=== PATIENT | female | born 1990 | race Caucasian/White ===

== ENCOUNTER → 2018-01-11 | Outpatient (CLI) | payer MEDICAID ==
[2018-01-11 13:28] LABS: HCT 42.8 % (34.0-46.0); MCH 30.1 pg (25.0-35.0); MCHC 32.8 g/dL (31.0-37.0); MCV 91.9 fL (80.0-100.0); Mean Platelet Volume 6.4; Platelet Count 287 k/uL (150-450); RBC 4.65 m/uL (3.80-5.40); RDW 12.7 % (11.5-15.5); WBC 7.4 k/uL (3.8-10.6)
--- NOTE | 2018-01-11 13:39 | US ---
EXAMINATION TYPE: Transabdominal DATE OF EXAM: 08/25/17 COMPARISON: NONE CLINICAL HISTORY: Z36 CONFIRM DATES. Confirm Dates EXAM PERFORMED: Transabdominal (TA) EXAM MEASUREMENTS: GESTATIONAL AGE / DATING Physician Established: (11 weeks/1 days) EDC: 08/01/2018 Dates by LMP: (11 weeks/1 days) EDC: 08/01/2018 Dates by First Scan: No prior Dates by Current Scan for: (11 weeks/3 days) EDC: 07/30/2018 MATERNAL ANATOMY Uterus: 9.7 x 5.5 x 3.7 cm Right Ovary: 3.7 x 1.7 x 2.1 cm Left Ovary: 3.3 x 1.8 x 2.0 cm Post CDS / Adnexa: wnl Presence of free fluid: No GESTATION / SURVEY CRL: 4.7 cm (11 weeks/3 days) MSD: wnl Heart Rate: 162 bpm Rhythm: Normal IUP: Viable IUP Single live intrauterine gestation is seen as gestational sac and pole are identified. Yolk sac is not clearly seen. No free fluid is seen in pelvic cul-de-sac. Both ovaries are seen. No suspicious extraovarian adnexal masses are noted. IMPRESSION: Single live intrauterine gestation is present, mean crown-rump length is 4.7 cm corresponding to 11 w [place] 3 day old fetus.
[2018-01-11 13:52] LABS: Glucose 80 mg/dL (74-99)
[2018-01-11 19:21] LABS: HIV 1 AB Non-Reactive (Non-Reactive); HIV AB P24 Non-Reactive (Non-Reactive); HIV P24 AG Non-Reactive (Non-Reactive)
[2018-01-12 04:13] LABS: Toxoplasma Antibody (IgG) <3.0 IU/mL (<7.2); Toxoplasma Antibody (IgM) <3.0 AU/mL (<8.0)
== END | disposition home or self-care (01) ==
LOC: RADUSWWP 10:50
PROVIDERS: ATTEND Obstetrics & Gynecology
DX: O26.811 Pregnancy related exhaustion and fatigue, first trimester (principal); Z3A.11 11 weeks gestation of pregnancy
CPT/HCPCS: 36415; 76801; 82565; 82947; 85027; 86762; 86777; 86778; 86780; 86850; 86900; 86901; 87340; 87390

== ENCOUNTER → 2018-03-08 | Outpatient (CLI) | payer MEDICAID ==
--- NOTE | 2018-03-08 14:55 | US ---
EXAMINATION TYPE: US OB anatomy transabd DATE OF EXAM: 03/08/2018 COMPARISON: 01/11/2018 HISTORY: 27-year-old female O36.62X0 large for dates TECHNIQUE: Transabdominal (TA) FINDINGS: EXAM MEASUREMENTS: GESTATIONAL AGE / DATING Physician Established: (19 weeks/1 days) EDC: 08/01/2018 Dates by LMP: (19 weeks/1 days) EDC: 08/01/2018 Dates by First Scan: (19 weeks/3 days) EDC: 07/30/2018 Dates by Current Scan for: (19 weeks/0 days. 3 days less growth than expected from October 11, 2017.) EDC: 08/02/2018 SURVEY IUP: Single PLACENTA: Posterior PREVIA: No previa AIDA: 11.3 cm Normal CERVICAL LENGTH (transabdominal: norm > 3.0cm): 3.7 cm BIOMETRY PRESENTATION: Vertex LIE: Oblique BPD: 4.0 cm 18 weeks / 1 days HC: 15.6 cm 18 weeks / 4 days AC: 14.3 cm 19 weeks / 5 days FL: 3.0 cm 19 weeks / 2 days ESTIMATED WEIGHT IN GRAMS: 287 grams ESTIMATED WEIGHT IN LBS/OZ: 0 lbs. 10 oz. WEIGHT PERCENTAGE BASED ON ESTABLISHED DATE: 58 % HC/AC: 1.09 Normal FL/AC: 21 Normal HEART RATE: 137 bpm RHYTHM: Normal ANATOMY SEEN (within normal limits): * Lateral Vent (< 1 cm) 0.6 cm * Cisterna Magna (< 1.1 cm) 0.2 cm * Nuchal Fold (< 0.6 cm) 0.2 cm * Cerebellum (varies with age) 1.9 cm Choroid Plexus (bilateral) Midline Falx Cavus Septi Pellucidi Four Chamber Heart Outflow tracts: LVOT/RVOT Stomach Situs Nose / Lips Diaphragm Kidneys (bilateral) Bladder Three Vessel Cord Longitudinal Spine Transverse Spine Arms (bilateral) Legs (bilateral) ANATOMY SUBOPTIMALLY VISUALIZED (due to positioning): Cord Insert IMPRESSION: 1. Single live intrauterine with estimated gestational age of 19 weeks 1 day by LMP. Curren t ultrasound biometry remains concordant (19 weeks 0 days) with only 3 days less growth than expected from 01/11/2018. 2. The cord insertion region was not well delineated due to positioning. The remaining anatomy appears normal. If desired, the patient can be brought back for a rescan in one to 2 weeks.
== END | disposition home or self-care (01) ==
LOC: RADUSWWP 08:23
PROVIDERS: ATTEND Obstetrics & Gynecology
DX: O36.62X0 Maternal care for excessive fetal growth, second trimester, not applicable or unspecified (principal); Z3A.19 19 weeks gestation of pregnancy
CPT/HCPCS: 76811

== ENCOUNTER → 2018-04-19 | Outpatient (CLI) | payer MEDICAID ==
--- NOTE | 2018-04-19 11:38 | US ---
EXAMINATION TYPE: US OB Call Back DATE OF EXAM: 04/19/2018 COMPARISON: US 03/08/2018 CLINICAL HISTORY: O36.62X0 large for dates OB CALLBACK. GESTATIONAL AGE / DATING Dates by Initial Survey Scan: (25 weeks/0 days) EDC: 08/02/2018 HEART RATE: 143 bpm RHYTHM: Normal ANATOMY SEEN (second anatomic survey look): Cord Insert : wnl IMPRESSION: Callback examination demonstrates a normal cord insertion. Single live intrauterine pregn vonnie with a sonographic age of 25 weeks and 0 days and estimated date of delivery of 08/02/2018 is see n.
== END | disposition home or self-care (01) ==
LOC: RADUSWWP 10:23
PROVIDERS: ATTEND Obstetrics & Gynecology
DX: Z53.9 Procedure and treatment not carried out, unspecified reason (principal)

== ENCOUNTER → 2018-04-21 | Outpatient (CLI) | payer MEDICAID ==
[2018-04-21 11:00] LABS: HCT 38.4 % (34.0-46.0); HGB 12.9 gm/dL (11.4-16.0); MCH 31.1 pg (25.0-35.0); MCHC 33.6 g/dL (31.0-37.0); MCV 92.4 fL (80.0-100.0); Mean Platelet Volume 6.9; Platelet Count 319 k/uL (150-450); RBC 4.15 m/uL (3.80-5.40); RDW 12.8 % (11.5-15.5); WBC 7.8 k/uL (3.8-10.6)
== END | disposition home or self-care (01) ==
LOC: LABWHC1 08:19
PROVIDERS: ATTEND Obstetrics & Gynecology
DX: Z34.02 Encounter for supervision of normal first pregnancy, second trimester (principal)
CPT/HCPCS: 36415; 82950; 85027

== ENCOUNTER → 2018-06-28 | Outpatient (CLI) | payer MEDICAID ==
--- NOTE | 2018-06-28 11:15 | US ---
EXAMINATION TYPE: US OB anatomy transabd DATE OF EXAM: 06/28/2018 COMPARISON: Second trimester ultrasound March 08, 2018 and older first trimester ultrasound January 11, 2018 HISTORY: O36.63XO large for dates LGA TECHNIQUE: Transabdominal (TA) EXAM MEASUREMENTS: GESTATIONAL AGE / DATING Physician Established: (35 weeks/1 days) EDC: 08/01/18 Dates by LMP: (35 weeks/1 days) EDC: 08/01/18 Dates by First Scan: (35 weeks/3 days) EDC: 07/30/18 Dates by Current Scan for: (34 weeks/6 days) EDC: 08/03/18 SURVEY IUP: Single PLACENTA: Posterior PREVIA: No previa AIDA: 10.6 cm Normal CERVICAL LENGTH (transabdominal: norm > 3.0cm): 3.3 cm BIOMETRY PRESENTATION: Vertex LIE: Longitudinal BPD: 8.6 cm 34 weeks / 5 days HC: 31.1 cm 34 weeks / 6 days AC: 30.4 cm 34 weeks / 3 days FL: 6.9 cm 35 weeks / 3 days ESTIMATED WEIGHT IN GRAMS: 2500 grams ESTIMATED WEIGHT IN LBS/OZ: 5 lbs. 8 oz. WEIGHT PERCENTAGE BASED ON ESTABLISHED DATE: 35 % HC/AC: 1.02 Normal FL/AC: 23% Normal HEART RATE: 138 bpm RHYTHM: Normal ANATOMY SEEN (within normal limits): Choroid Plexus (bilateral) Four Chamber Heart Stomach Situs Nose / Lips Diaphragm Kidneys (bilateral) Bladder Longitudinal Spine Transverse Spine ANATOMY NOT SEEN: due to age and position * Lateral Vent (< 1 cm) * Cisterna Magna (< 1.1 cm) * Nuchal Fold (< 0.6 cm) * Cerebellum (varies with age) Midline Falx Cavus Septi Pellucidi Outflow tracts: LVOT/RVOT Cord Insert Three Vessel Cord Arms (bilateral) Legs (bilateral) Single live intrauterine gestation is redemonstrated. There is no ultrasound evidence for placenta pr evia. Normal cephalad presentation to fetus is seen. Amniotic fluid index is calculated within normal limits. No cervical thinning noted. biometry measurements are concordant felt within normal limits. Anatomical survey shows no susp icious abnormality but is suboptimal due to advanced third trimester age. Prior second trimester ultr asound showed no anatomical abnormality. IMPRESSION: As above.
== END | disposition home or self-care (01) ==
LOC: RADUSWWP 09:08
PROVIDERS: ATTEND Obstetrics & Gynecology
DX: O36.63X0 Maternal care for excessive fetal growth, third trimester, not applicable or unspecified (principal); Z3A.34 34 weeks gestation of pregnancy
CPT/HCPCS: 76811

== ENCOUNTER 2018-07-13 09:12 | Inpatient (IN) | payer MEDICAID ==
[2018-07-13 10:09] VITALS: BMI 29.5
[2018-07-13 10:17] LABS: Basophils % (A) 1 %; Eosinophils # (A) 0.3 k/uL (0-0.7); Eosinophils % (A) 3 %; HCT 39.7 % (34.0-46.0); HGB 13.2 gm/dL (11.4-16.0); Lymphocytes # (A) 1.4 k/uL (1.0-4.8); Lymphocytes % (A) 18 %; MCH 30.4 pg (25.0-35.0); MCHC 33.3 g/dL (31.0-37.0); MCV 91.2 fL (80.0-100.0); Mean Platelet Volume 7.8; Monocytes # (A) 0.4 k/uL (0-1.0); Monocytes % (A) 5 %; Neutrophils # (A) 5.7 k/uL (1.3-7.7); Neutrophils % (A) 72 %; Platelet Count 266 k/uL (150-450); RBC 4.36 m/uL (3.80-5.40); RDW 13.2 % (11.5-15.5)
[2018-07-13 10:32] LABS: ALT 36 U/L (9-52); AST 31 U/L (14-36); Blood Urea Nitrogen 13 mg/dL (7-17); LDH 493 U/L (313-618); Uric Acid 6.8 mg/dL (3.7-7.4)
[2018-07-13 10:55] LABS: Appearance,Urine Clear (Clear); Bacteria,Urine Occasional /hpf; Bilirubin,Urine Negative (Negative); Blood,Urine Trace (Negative); Color,Urine Yellow; Glucose,Urine (UA) Negative (Negative); Ketones,Urine Negative (Negative); Leukocyte Esterase,Urine Negative (Negative); Mucus,Urine Rare /hpf; Nitrite,Urine Negative (Negative); PH, Urine 5.5 (5.0-8.0); Protein,Urine 2+ (Negative); RBC,Urine 2 /hpf (0-5); Specific Gravity,Urine 1.009 (1.001-1.035); Squamous Epithelial Cell,Urine <1 /hpf (0-4); Urobilinogen,Urine <2.0 mg/dL (<2.0); WBC,Urine 2 /hpf (0-5)
[2018-07-13] MEDS ORDERED: TERBUTALINE 1 MG/ML VIAL SQ PRN (11:43)
[2018-07-13] MEDS ORDERED: OXYTOCIN 10 UNIT/ML 1 ML VIAL IM PRN (11:43)
[2018-07-13] MEDS ORDERED: LIDOCAINE 0.5% (PF) 5 MG/ML (50 ML SDV) SQ PRN (11:43)
[2018-07-13] MEDS ORDERED: METHYLERGONOVINE 0.2 MG/ML 1 ML AMP IM PRN (11:43)
[2018-07-13] MEDS ORDERED: CARBOPROST TROMETHAMINE 250 MCG/ML 1 ML AMP IM PRN (11:43)
[2018-07-13] MEDS ORDERED: OXYTOCIN 30 UNITS/500 ML NS 30 UNIT in SALINE 1 500ML.BAG IV SCH (11:45)
[2018-07-13] MEDS: LACTATED RINGERS 1,000 ML IV SCH ×3 (12:01→14:48)
--- NOTE | 2018-07-13 12:07 | P.HPOB ---
History of Present Illness H&P Date: 07/13/18 Chief Complaint: Hypertension This patient is a pleasant 27-year-old 1 para 0 female estimated date of confinement 08/01/2018 estimated gestational age 37-2/7 weeks who presented to my office this morning for a routine visit was found to have elevated blood pressures to 148/100. Patient states that she's been having swelling over the last few days and also has had approximately 6 pound weight gain. She denies headache or blurry vision. She does have 2+ proteinuria. Blood pressures here in labor and delivery confirmed elevations greater than 140 /90. Preeclampsia labs are negative with the exception of 2+ proteinuria. has otherwise been uncomplicated. Review of Systems Genitourinary: Reports Menstruation: Reports amenorrhea Past Medical History Past Medical History: No Reported History Additional Past Medical History / Comment(s): Patient is a history of migraine headaches History of Any Multi-Drug Resistant Organisms: None Reported Past Surgical History: Tonsillectomy Additional Past Surgical History / Comment(s): 1999 Past Anesthesia/Blood Transfusion Reactions: No Reported Reaction Past Psychological History: No Psychological Hx Reported Smoking Status: Never smoker Past Alcohol Use History: None Reported Past Drug Use History: None Reported Medications and Allergies Home Medications Medication Instructions Recorded Confirmed Type Pnv No.95/Ferrous Fum/Folic AC 07/13/18 History [ Multivitamin Tablet] Allergies Allergy/AdvReac Type Severity Reaction Status Date / Time No Known Allergies Allergy Verified 07/13/18 09:37 Exam Vital Signs Temp Pulse Resp BP 07/13/18 09:30 99.5 F 82 18 141/90 Intake and Output 07/12/18 07/13/18 07/13/18 22:59 06:59 14:59 Other: Weight 83.098 kg - OBG Physical Exam Abdomen: bowel sounds normal, no diffuse tenderness, no bruit present, no guarding noted, no hepatomegaly, no splenomegaly, no mass Vulva: both: normal Vagina: normal moisture, no discharge Cervix: no lesion (Cervix is 2-3 cm 80% effaced -1 station), no discharge Uterus: enlarged (Fundal height is 38 cm) Results blood work shows she is O positive, rubella immune, RPR nonreactive, HIV is nonreactive, hepatitis B is negative, ultrasounds have been normal, group B strep is negative, Glucola is normal. Result Diagrams: 07/13/18 09:58 07/13/18 09:58 Abnormal Lab Results - Last 24 Hours (Table) 07/13/18 07/13/18 Range/Units 10:27 10:27 Urine Protein 2+ H (Negative) Urine Blood Trace H (Negative) Urine Bacteria Occasional H (None) /hpf Urine Mucus Rare H (None) /hpf U Random Total Protein 332 H (<12) mg/dL Assessment and Plan Assessment: This is a pleasant 27-year-old 1 para 0 female 37-2/7 weeks gestation admitted for evaluation of gestational hypertension. At this point the patient has proteinuria without evidence of preeclampsia. She most definitely does have gestational hypertension. Her current recommendations we'll proceed with delivery at this time. Patient I have discussed her clinical situation treatment plan and wishes to proceed. (1) 37 weeks gestation of Current Visit: Yes Status: Acute Code(s): Z3A.37 - 37 WEEKS GESTATION OF SNOMED Code(s): 06382466 (2) Gestational hypertension Current Visit: Yes Status: Acute Code(s): O13.9 - GESTATIONAL HTN W/O SIGNIFICANT PROTEINURIA, UNSP TRIMESTER SNOMED Code(s): 280414764
[2018-07-13] MEDS ORDERED: SODIUM CHLORIDE 0.9% 100 ML BAG ONE (14:05)
[2018-07-13] MEDS ORDERED: fentaNYL (PF) 50 MCG/ML 5 ML AMP ONE (14:05)
[2018-07-13] MEDS ORDERED: ROPIVACAINE 5MG/ML 20ML VIAL ONE (14:05)
[2018-07-13] MEDS ORDERED: SIMETHICONE 80 MG CHEWABLE PO PRN (21:24)
[2018-07-13] MEDS ORDERED: WITCH HAZEL 1 EACH MED..PAD TOPICAL PRN (21:24)
[2018-07-13] MEDS ORDERED: diphenhydrAMINE 50 MG/ML 1 ML VIAL IVP PRN (21:24)
[2018-07-13] MEDS ORDERED: diphenhydrAMINE 25 MG CAP PO PRN (21:24)
[2018-07-13] MEDS ORDERED: HYDROCORTISONE 2.5% RECTAL CREAM 30 GM TUBE RECTAL PRN (21:24)
[2018-07-13] MEDS ORDERED: BISACODYL 10 MG SUPP RECTAL PRN (21:24)
[2018-07-13] MEDS ORDERED: ACETAMINOPHEN TAB 325 MG TAB PO PRN (21:24)
[2018-07-13] MEDS ORDERED: BENZOCAINE/MENTHOL SPRAY 1 GM/SPRAY AEROSOL TOPICAL PRN (21:24)
[2018-07-13] MEDS ORDERED: LANOLIN CREAM 5 GM TUBE TOPICAL PRN (21:24)
[2018-07-13] MEDS ORDERED: ZOLPIDEM 5 MG TAB PO PRN (21:24)
[2018-07-13] MEDS ORDERED: OXYTOCIN 20 UNITS/1000 ML NS 1,000 ML IV SCH (21:30)
--- NOTE | 2018-07-13 21:36 | P.PROBDLV ---
Vaginal Delivery Note - . Vaginal Delivery Note: Normal vaginal delivery viable female Apgars 9 and 9 delivery time is 2101 hrs. Please see dictated H&P for intimate details of this patient's admission. Brief summary is a pleasant 27-year-old 1 para 0 female 37-2/7 weeks gestation is admitted to labor and delivery from my office for elevated blood pressures patient's preeclampsia labs are negative however she has 2+ proteinuria and persistent blood pressure elevations as high as 153/99. This time we recommended proceed with delivery. Patient is artificial rupture membranes for clear fluid and Pitocin induction of labor. She is approximately 3 cm dilated. Labor progresses and she does get an epidural for pain control. Patient gets to complete and pushes for approximately 60 minutes. Posterior perineum was supported and we have controlled delivery of infant's head over the intact perineum. Mouth and nares are bulb suctioned. There is no evidence of nuchal cord. We then have deliver the anterior posterior shoulder and rest this 's body. This is a vigorous viable female Apgars are 9 and 9 delivery time was 2101 hrs. After delivery of the infant is late on the mother' s abdomen. After the umbilical cord is done pulsating is then doubly clamped and cut and transected. Cord blood is obtained. Placenta is then spontaneously delivered intact. Inspection of the perineum shows a second- degree vaginal laceration was repaired with 3-0 Vicryl usual fashion. She also has some superficial right and left labial lacerations or repair is a 3-0 Vicryl as well. Excellent reapproximation is noted. This done are correct 3. There are no complications. Infant and mother stable delivery room.
[2018-07-13] MEDS: IBUPROFEN 600 MG TAB PO PRN (21:43)
[2018-07-14] MEDS: IBUPROFEN 600 MG TAB PO PRN ×3 (05:50→18:43)
--- NOTE | 2018-07-14 06:31 | P.PNOBGVD ---
Subjective - Subjective Patient reports: Reports appetite normal, Reports voiding normally, Reports pain well controlled, Reports ambulating normally : doing well Objective - Latest Vital Signs Latest vital signs: Vital Signs Temp Pulse Resp BP 07/14/18 04:00 98.2 F 73 16 138/91 07/13/18 23:18 99.1 F 74 16 145/87 07/13/18 22:48 81 16 132/79 07/13/18 22:18 74 16 143/84 07/13/18 22:03 87 16 150/85 07/13/18 21:48 99.3 F 74 16 148/84 07/13/18 21:33 77 16 137/84 07/13/18 21:18 73 16 141/89 07/13/18 09:30 99.5 F 82 18 141/90 Intake and Output 07/13/18 07/13/18 07/14/18 14:59 22:59 06:59 Intake Total 300 0 Balance 300 0 Intake: Intake, IV Titration 300 0 Amount Lactated Ringers 1,000 ml 300 @ 125 mls/hr IV .Q8H ERICK Rx#:[id number] Oxytocin 20 Units/1000 ml 0 Ns 1,000 ml @ Per Protocol IV .Q0M ERICK Rx#: [id number] Other: # Voids 3 Weight 83.098 kg - Exam Lungs: bilateral: normal Chest: Normal S1, Normal S2 Extremities: Present: normal Abdomen: Present: normal appearance, soft Uterus: Present: normal, firm - Labs Labs: Abnormal Lab Results - Last 24 Hours (Table) 07/13/18 07/13/18 Range/Units 10:27 10:27 Urine Protein 2+ H (Negative) Urine Blood Trace H (Negative) Urine Bacteria Occasional H (None) /hpf Urine Mucus Rare H (None) /hpf U Random Total Protein 332 H (<12) mg/dL Assessment and Plan Assessment: day #1. Patient had an isolated episode of blurred vision but this resolved and she does not feel is related to her blood pressure. Vital signs are stable. Blood pressures are 130s 140s over 70s to 90s. Patient is without symptomatology otherwise. Uterus is firm nontender she's having normal lochia. Plan today is to continue routine care and monitor her blood pressure. She is doing well slight discharge home tomorrow. (1) 37 weeks gestation of Current Visit: Yes Status: Acute Code(s): Z3A.37 - 37 WEEKS GESTATION OF SNOMED Code(s): 97152710 (2) Gestational hypertension Current Visit: Yes Status: Acute Code(s): O13.9 - GESTATIONAL HTN W/O SIGNIFICANT PROTEINURIA, UNSP TRIMESTER SNOMED Code(s): 166948630
[2018-07-14] MEDS: SENNOSIDES-DOCUSATE SODIUM 1 EACH TAB PO SCH ×2 (07:28→20:07)
[2018-07-15 01:32] VITALS: PULSE 75
[2018-07-15] MEDS: IBUPROFEN 600 MG TAB PO PRN ×2 (01:40→10:54)
--- NOTE | 2018-07-15 06:11 | P.PNOBGVD ---
Subjective - Subjective Patient reports: Reports appetite normal, Reports voiding normally, Reports pain well controlled, Reports ambulating normally : doing well Objective - Latest Vital Signs Latest vital signs: Vital Signs Temp Pulse Resp BP 07/15/18 00:00 75 14 143/90 07/14/18 16:00 98.2 F 68 16 143/94 07/14/18 12:00 98.3 F 66 16 148/100 07/14/18 07:31 98 F 77 16 140/82 Intake and Output 07/14/18 07/14/18 07/15/18 14:59 22:59 06:59 Other: # Voids 1 - Exam Lungs: bilateral: normal Chest: Normal S1, Normal S2 Extremities: Present: normal Abdomen: Present: normal appearance, soft Uterus: Present: normal, firm Assessment and Plan Assessment: day #2. Patient is resting without complaints. Blood pressures are 140s over 90s she's had one isolated diastolic of 100. Patient denies headache or other symptomatology at this time. Her baby's bili blanket due to some jaundice. Patient's uterus is firm nontender and she is having normal lochia. My impression is that she is doing well and has stable blood pressure. This time I do not think this requires treatment however does require close observation. 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 She also see me in 1 week for blood pressure check (1) 37 weeks gestation of Current Visit: Yes Status: Acute Code(s): Z3A.37 - 37 WEEKS GESTATION OF SNOMED Code(s): 80906814 (2) Gestational hypertension Current Visit: Yes Status: Acute Code(s): O13.9 - GESTATIONAL HTN W/O SIGNIFICANT PROTEINURIA, UNSP TRIMESTER SNOMED Code(s): 306455537
--- NOTE | 2018-07-15 06:15 | P.DS ---
Providers Date of admission: 07/13/18 09:12 Expected date of discharge: 07/15/18 Attending physician: Ramiro Perez Primary care physician: Stated None - Discharge Diagnosis(es) (1) 37 weeks gestation of Current Visit: Yes Status: Acute (2) Gestational hypertension Current Visit: Yes Status: Acute Hospital Course: Please see dictated H&P for intimate details of this patient's admission. Brief summary this pleasant 27-year-old 1 para 0 female 37-2/7 weeks gestation admitted to labor and delivery for induction secondary to gestational hypertension. Patient is admitted and quickly goes on have a vaginal delivery viable female . Please see dictated delivery note. patient still had some elevated blood pressures but nothing requiring treatment. On day #2 patient's felt be stable for discharge home follow up with me in 1 week for blood pressure check. She has we'll check her blood pressures at home as well again the parameters to call. Procedures: Induction of labor and normal vaginal delivery Patient Condition at Discharge: Good Plan - Discharge Summary New Discharge Prescriptions: New Ibuprofen [Motrin] 600 mg PO Q6HR PRN #40 tab PRN Reason: Mild Pain Or Fever >= 100.5 No Action Pnv No.95/Ferrous Fum/Folic AC [ Multivitamin Tablet] Discharge Medication List Pnv No.95/Ferrous Fum/Folic AC [ Multivitamin Tablet] 07/13/18 [History ] Ibuprofen [Motrin] 600 mg PO Q6HR PRN #40 tab 07/15/18 [Rx] Follow up Appointment(s)/Referral(s): Ramiro Perez MD [STAFF PHYSICIAN] - 08/24/18 2:15 pm (Please see me next for a blood pressure check.) Patient Instructions/Handouts: Vaginal Delivery (DC) Activity/Diet/Wound Care/Special Instructions: No intercourse or anything per vagina for 6 weeks. Please call if any fever, chills, excessive vaginal bleeding, and/or abdominal pain. Discharge Disposition: HOME SELF-CARE
[2018-07-15 08:48] VITALS: BP 135/88; RESP 16; TEMP 98
[2018-07-15] MEDS: SENNOSIDES-DOCUSATE SODIUM 1 EACH TAB PO SCH (08:49)
== END 2018-07-15 13:30 | disposition home or self-care (01) | DRG 807 ==
LOC: 4FBP 09:12
PROVIDERS: ADMIT Obstetrics & Gynecology; ATTEND Obstetrics & Gynecology
PROC: 3E0R3NZ Introduction of Analgesics, Hypnotics, Sedatives into Spinal Canal, Percutaneous Approach (ICD-10-PCS; principal; 2018-07-13)
PROC: 3E033VJ Introduction of Other Hormone into Peripheral Vein, Percutaneous Approach (ICD-10-PCS; principal; 2018-07-13)
PROC: 10E0XZZ Delivery of Products of Conception, External Approach (ICD-10-PCS; principal; 2018-07-13)
PROC: 0HQ9XZZ Repair Perineum Skin, External Approach (ICD-10-PCS; principal; 2018-07-13)
PROC: 10907ZC Drainage of Amniotic Fluid, Therapeutic from Products of Conception, Via Natural or Artificial Opening (ICD-10-PCS; principal; 2018-07-13)
PROC: 00HU33Z Insertion of Infusion Device into Spinal Canal, Percutaneous Approach (ICD-10-PCS; principal; 2018-07-13)
DX: O13.4 Gestational [pregnancy-induced] hypertension without significant proteinuria, complicating childbirth (principal); Z37.0 Single live birth; Z3A.37 37 weeks gestation of pregnancy; O70.0 First degree perineal laceration during delivery
CPT/HCPCS: 81001; 82565; 82570; 83615; 84156; 84450; 84460; 84520; 84550; 85025; 86850; 86900; 86901; 88307

== ENCOUNTER → 2019-12-02 | Outpatient (CLI) | payer MEDICAID | END | disposition home or self-care (01) | LOC: LABWHC1 12:41 | PROVIDERS: ATTEND Pediatrics Pediatric Infectious Diseases | DX: Z11.59 Encounter for screening for other viral diseases (principal) | CPT/HCPCS: U0003; C9803 ==

== ENCOUNTER 2019-12-04 12:19 | Emergency (ER) | payer MEDICAID ==
[2019-12-04 12:28] VITALS: TEMP 99.9
--- NOTE | 2019-12-04 12:38 | ED ---
General Adult HPI - General Chief complaint: Shortness of Breath Stated complaint: SOB,headache Time Seen by Provider: 12/04/19 12:20 Source: patient, RN notes reviewed, old records reviewed Mode of arrival: ambulatory Limitations: no limitations - History of Present Illness Initial comments: This is a 29-year-old female who presents emergency department stating that she started to feel under the weather on . On Thursday should 102 fever and a little bit of shortness of breath. Patient states she had a COVID test at that time. Patient states Thursday she felt better and then last night about 2:00 morning she woke up and felt more short of breath and she describes a tightness in her chest. Patient denied any pain in her chest. Patient states she hasn't had a fever since Thursday. Patient denied any chills since Thursday. Patient denied any abdominal pain. Patient has a nausea vomiting diarrhea. Patient denies any dysuria hematuria urinary frequency. - Related Data Home Medications Medication Instructions Recorded Confirmed Pnv No.95/Ferrous Fum/Folic AC 07/13/18 [ Multivitamin Tablet] Previous Rx's Medication Instructions Recorded Ibuprofen [Motrin] 600 mg PO Q6HR PRN #40 tab 07/15/18 Allergies Allergy/AdvReac Type Severity Reaction Status Date / Time No Known Allergies Allergy Verified 12/04/19 12:28 Review of Systems ROS Statement: Those systems with pertinent positive or pertinent negative responses have been documented in the HPI. ROS Other: All systems not noted in ROS Statement are negative. Past Medical History Past Medical History: No Reported History Additional Past Medical History / Comment(s): Patient is a history of migraine headaches History of Any Multi-Drug Resistant Organisms: None Reported Past Surgical History: Tonsillectomy Additional Past Surgical History / Comment(s): 1999 Past Anesthesia/Blood Transfusion Reactions: No Reported Reaction Past Psychological History: No Psychological Hx Reported Smoking Status: Never smoker Past Alcohol Use History: None Reported Past Drug Use History: None Reported General Exam - General Exam Comments Initial Comments: GENERAL: Patient is well-developed and well-nourished. Patient is nontoxic and well- hydrated and is in no acute distress. ENT: Neck is soft and supple. No significant lymphadenopathy is noted. Oropharynx is clear. Moist mucous membranes. Neck has full range of motion without eliciting any pain. EYES: The sclera were anicteric and conjunctiva were pink and moist. Extraocular movements were intact and pupils were equal round and reactive to light. Eyelids were unremarkable. PULMONARY: Unlabored respirations. Good breath sounds bilaterally. No audible rales rhonchi or wheezing was noted. CARDIOVASCULAR: There is a regular rate and rhythm without any murmurs gallops or rubs. ABDOMEN: Soft and nontender with normal bowel sounds. SKIN: Skin is clear with no lesions or rashes and otherwise unremarkable. NEUROLOGIC: Patient is alert and oriented x3. Cranial nerves II through XII are grossly intact. Motor and sensory are also intact. Normal speech, volume and content. Symmetrical smile. MUSCULOSKELETAL: Normal extremities with adequate strength and full range of motion. No lower extremity swelling or edema. No calf tenderness. LYMPHATICS: No significant lymphadenopathy is noted PSYCHIATRIC: Patient seems mildly anxious Limitations: no limitations Course Vital Signs 12/04/19 12/04/19 12/04/19 12:22 12:28 13:28 Temperature 99.9 F H Pulse Rate 99 Respiratory 18 20 20 Rate Blood Pressure 146/93 O2 Sat by Pulse 98 Oximetry 12/04/19 12/04/19 12/04/19 14:28 15:00 15:03 Temperature Pulse Rate 60 63 58 L Respiratory 20 Rate Blood Pressure 130/97 O2 Sat by Pulse 99 99 Oximetry 12/04/19 15:14 Temperature Pulse Rate 60 Respiratory Rate Blood Pressure O2 Sat by Pulse Oximetry Medical Decision Making - Medical Decision Making EKG shows normal sinus rhythm at 77 bpm [place] interval 126 QRS is 82 QT interval 372 QTC is 420 per patient's EKG shows no ST segment elevation or depression. - Lab Data Result diagrams: 12/04/19 15:24 12/04/19 15:24 Lab Results 12/04/19 12/04/19 12/04/19 Range/Units 12:30 12:38 14:39 WBC (3.8-10.6) k/uL RBC (3.80-5.40) m/uL Hgb (11.4-16.0) gm/dL Hct (34.0-46.0) % MCV (80.0-100.0) fL MCH (25.0-35.0) pg MCHC (31.0-37.0) g/dL RDW (11.5-15.5) % Plt Count (150-450) k/uL Neutrophils % % Lymphocytes % % Monocytes % % Eosinophils % % Basophils % % Neutrophils # (1.3-7.7) k/uL Lymphocytes # (1.0-4.8) k/uL Monocytes # (0-1.0) k/uL Eosinophils # (0-0.7) k/uL Basophils # (0-0.2) k/uL PT (9.0-12.0) sec INR (<1.2) APTT (22.0-30.0) sec D-Dimer 4.33 H (<0.60) mg/L FEU Sodium (137-145) mmol/L Potassium (3.5-5.1) mmol/L Chloride (98-107) mmol/L Carbon Dioxide (22-30) mmol/L Anion Gap mmol/L BUN (7-17) mg/dL Creatinine (0.52-1.04) mg/dL Est GFR (CKD-EPI)AfAm (>60 ml/min/1.73 sqM) Est GFR (CKD-EPI)NonAf (>60 ml/min/1.73 sqM) Glucose (74-99) mg/dL Calcium (8.4-10.2) mg/dL Total Bilirubin (0.2-1.3) mg/dL AST (14-36) U/L ALT (4-34) U/L Alkaline Phosphatase (38-126) U/L Total Protein (6.3-8.2) g/dL Albumin (3.5-5.0) g/dL Urine Color Colorless Urine Appearance Clear (Clear) Urine pH 6.5 (5.0-8.0) Ur Specific [place] 1.001 (1.001-1.035) Urine Protein Negative (Negative) Urine Glucose (UA) Negative (Negative) Urine Ketones Negative (Negative) Urine Blood Negative (Negative) Urine Nitrite Negative (Negative) Urine Bilirubin Negative (Negative) Urine Urobilinogen <2.0 (<2.0) mg/dL Ur Leukocyte Esterase Negative (Negative) Urine HCG, Qual Not Detected (Not Detectd) 12/04/19 12/04/19 12/04/19 Range/Units 14:39 15:24 15:24 WBC 6.2 (3.8-10.6) k/uL RBC 4.90 (3.80-5.40) m/uL Hgb 14.8 (11.4-16.0) gm/dL Hct 44.8 (34.0-46.0) % MCV 91.4 (80.0-100.0) fL MCH 30.2 (25.0-35.0) pg MCHC 33.0 (31.0-37.0) g/dL RDW 12.3 (11.5-15.5) % Plt Count 311 (150-450) k/uL Neutrophils % 62 % Lymphocytes % 28 % Monocytes % 5 % Eosinophils % 2 % Basophils % 1 % Neutrophils # 3.8 (1.3-7.7) k/uL Lymphocytes # 1.7 (1.0-4.8) k/uL Monocytes # 0.3 (0-1.0) k/uL Eosinophils # 0.1 (0-0.7) k/uL Basophils # 0.0 (0-0.2) k/uL PT 10.1 (9.0-12.0) sec INR 1.0 (<1.2) APTT 24.7 (22.0-30.0) sec D-Dimer (<0.60) mg/L FEU Sodium 139 (137-145) mmol/L Potassium 4.2 (3.5-5.1) mmol/L Chloride 107 (98-107) mmol/L Carbon Dioxide 23 (22-30) mmol/L Anion Gap 9 mmol/L BUN 10 (7-17) mg/dL Creatinine 0.68 (0.52-1.04) mg/dL Est GFR (CKD-EPI)AfAm >90 (>60 ml/min/1.73 sqM) Est GFR (CKD-EPI)NonAf >90 (>60 ml/min/1.73 sqM) Glucose 98 (74-99) mg/dL Calcium 10.0 (8.4-10.2) mg/dL Total Bilirubin 1.2 (0.2-1.3) mg/dL AST 21 (14-36) U/L ALT 12 (4-34) U/L Alkaline Phosphatase 49 (38-126) U/L Total Protein 7.0 (6.3-8.2) g/dL Albumin 4.4 (3.5-5.0) g/dL Urine Color Urine Appearance (Clear) Urine pH (5.0-8.0) Ur Specific [place] (1.001-1.035) Urine Protein (Negative) Urine Glucose (UA) (Negative) Urine Ketones (Negative) Urine Blood (Negative) Urine Nitrite (Negative) Urine Bilirubin (Negative) Urine Urobilinogen (<2.0) mg/dL Ur Leukocyte Esterase (Negative) Urine HCG, Qual (Not Detectd) Disposition Clinical Impression: Upper respiratory infection, Dyspnea Disposition: HOME SELF-CARE Condition: Good Instructions (If sedation given, give patient instructions): Upper Respiratory Infection (ED) Additional Instructions: Patient needs to quarantine into her results are back. Is patient prescribed a controlled substance at d/c from ED?: No Referrals: Yeyo Keyes MD [Primary Care Provider] - 1-2 days Time of Disposition: 16:20
[2019-12-04 12:43] LABS: Appearance,Urine Clear (Clear); Bilirubin,Urine Negative (Negative); Blood,Urine Negative (Negative); Color,Urine Colorless; Glucose,Urine (UA) Negative (Negative); Ketones,Urine Negative (Negative); Leukocyte Esterase,Urine Negative (Negative); Nitrite,Urine Negative (Negative); PH, Urine 6.5 (5.0-8.0); Protein,Urine Negative (Negative); Specific Gravity,Urine 1.001 (1.001-1.035); Urobilinogen,Urine <2.0 mg/dL (<2.0)
[2019-12-04] MEDS ORDERED: IPRATROPIUM-ALBUTEROL 3 ML NEB INHALATION STA (14:16)
--- NOTE | 2019-12-04 14:22 | XR ---
EXAMINATION TYPE: XR chest 2V DATE OF EXAM: 12/04/2019 COMPARISON: NONE HISTORY: Difficulty breathing TECHNIQUE: Frontal and lateral views of the chest are obtained. FINDINGS: There is no focal air space opacity, pleural effusion, or pneumothorax seen. The cardiac silhouette size is within normal limits. The osseous structures are intact. IMPRESSION: No acute cardiopulmonary process.
[2019-12-04 14:33] VITALS: RESP 20
[2019-12-04 15:40] LABS: Basophils % (A) 1 %; Eosinophils # (A) 0.1 k/uL (0-0.7); Eosinophils % (A) 2 %; HCT 44.8 % (34.0-46.0); HGB 14.8 gm/dL (11.4-16.0); Lymphocytes # (A) 1.7 k/uL (1.0-4.8); Lymphocytes % (A) 28 %; MCH 30.2 pg (25.0-35.0); MCV 91.4 fL (80.0-100.0); Mean Platelet Volume 7.6; Monocytes # (A) 0.3 k/uL (0-1.0); Monocytes % (A) 5 %; Neutrophils # (A) 3.8 k/uL (1.3-7.7); Neutrophils % (A) 62 %; Platelet Count 311 k/uL (150-450); RDW 12.3 % (11.5-15.5); WBC 6.2 k/uL (3.8-10.6)
--- NOTE | 2019-12-04 15:49 | CT ---
EXAMINATION TYPE: CT chest angio for PE DATE OF EXAM: 12/04/2019 COMPARISON: Chest x-ray same date HISTORY: SOB, elevated d-dimer CT DLP: 234.8 mGycm Automated exposure control for dose reduction was used. CONTRAST: CT Chest for pulmonary embolism performed with with IV Contrast, patient injected with 66cc mL of Iso donna 370. FINDINGS: LUNGS: The lungs are grossly clear, there is no concerning parenchymal mass or nodule identified. T here is no pleural effusion or pneumothorax seen. The tracheobronchial tree is patent. MEDIASTINUM: There is satisfactory enhancement of the pulmonary artery and its branches, there is no CT evidence for pulmonary embolism. There are no greater than 1 cm hilar or mediastinal lymph nodes. No pericardial effusion is seen. AORTA: No additional significant abnormality is seen. OTHER: No additional significant abnormality is seen. IMPRESSION: No pulmonary embolism.
[2019-12-04 15:56] LABS: ALT 12 U/L (4-34); AST 21 U/L (14-36); African American GFR (CKD) >90 (>60 ml/min/1.73 sqM); Albumin 4.4 g/dL (3.5-5.0); Alkaline Phosphatase 49 U/L (38-126); Anion Gap 9 mmol/L; Blood Urea Nitrogen 10 mg/dL (7-17); Carbon Dioxide 23 mmol/L (22-30); Chloride 107 mmol/L (98-107); Glucose 98 mg/dL (74-99); Non-African American GFR(CKD) >90 (>60 ml/min/1.73 sqM); Potassium 4.2 mmol/L (3.5-5.1); Sodium 139 mmol/L (137-145); Total Bilirubin 1.2 mg/dL (0.2-1.3)
[2019-12-04 16:01] LABS: Partial Thromboplastin Time 24.7 sec (22.0-30.0); Prothrombin Time 10.1 sec (9.0-12.0)
[2019-12-04 16:36] LABS: Magnesium 2.1 mg/dL (1.6-2.3)
[2019-12-04 16:39] VITALS: BP 128/91; PULSE 63
[2019-12-04 17:51] LABS: C Reactive Protein 9.7 mg/L (<10.0)
[2019-12-05 11:19] LABS: Ferritin 55.1 ng/mL (10.0-291.0)
== END 2019-12-04 16:39 | disposition home or self-care (01) ==
LOC: EC 12:19
DX: J06.9 Acute upper respiratory infection, unspecified (principal)
CPT/HCPCS: 36415; 94640; 93005; 85379; 80053; 82728; 83605; 83615; 83735; 85025; 85610; 85730; 86140; 81003; 81025; 84145; 71046; 71275; 99285; U0003; Q9967

== ENCOUNTER 2022-12-02 00:07 | Inpatient (IN) | payer BC ==
[2022-12-02] MEDS ORDERED: miSOPROStoL 200 MCG TAB PO PRN (00:54)
[2022-12-02] MEDS ORDERED: TERBUTALINE 1 MG/ML VIAL SQ PRN (00:54)
[2022-12-02] MEDS ORDERED: LIDOCAINE 0.5% (PF) 5 MG/ML (50 ML SDV) SQ PRN (00:54)
[2022-12-02] MEDS ORDERED: METHYLERGONOVINE 0.2 MG/ML 1 ML AMP IM PRN (00:54)
[2022-12-02] MEDS ORDERED: OXYTOCIN 10 UNIT/ML 1 ML VIAL IM PRN (00:54)
[2022-12-02] MEDS ORDERED: CARBOPROST TROMETHAMINE 250 MCG/ML 1 ML AMP IM PRN (00:54)
[2022-12-02] MEDS ORDERED: TRANEXAMIC 1,000 MG/100ML-NACL 1,000 MG in EMPTY BAG 1 BAG IV PRN (00:54)
[2022-12-02] MEDS: LACTATED RINGERS 1,000 ML IV SCH ×2 (01:31→02:08)
[2022-12-02 01:43] LABS: Basophils % (A) 0 %; Eosinophils # (A) 0.2 k/uL (0-0.7); Eosinophils % (A) 1 %; HCT 33.5 % (34.0-46.0); HGB 11.1 gm/dL (11.4-16.0); Lymphocytes # (A) 2.1 k/uL (1.0-4.8); Lymphocytes % (A) 18 %; MCH 26.6 pg (25.0-35.0); MCV 80.5 fL (80.0-100.0); Mean Platelet Volume 8.1; Monocytes # (A) 0.7 k/uL (0-1.0); Monocytes % (A) 6 %; Neutrophils # (A) 8.9 k/uL (1.3-7.7); Neutrophils % (A) 73 %; Platelet Count 399 k/uL (150-450); RBC 4.16 m/uL (3.80-5.40); WBC 12.1 k/uL (3.8-10.6)
--- NOTE | 2022-12-02 03:37 | P.HPOB ---
History of Present Illness H&P Date: 12/02/22 Chief Complaint: Spontaneous rupture of membranes This is a 32-year-old female 2 para 1 with an estimated date of confinement of 12/16/2022, estimated gestational age of 38-0/7 weeks, who presents to labor and delivery with complaints of spontaneous rupture membranes at approximately 10:45 PM on 12/02/2022. She initially denied feeling contractions but upon arrival did start to have regular contractions about every 3-4 minutes. Her care has been with Dr. Perez and has been uncomplicated per patient. She has been on a baby aspirin due to history of possible preeclampsia with her last . 80 labs: Blood type-O+ Antibody screen-negative Group B streptococcus-negative All other labs are unavailable at this time. Obstetrical history: . History of 1 vaginal delivery at 37 weeks due to gestational hypertension. Review of Systems Constitutional: Denies chills, Denies fever Eyes: denies blurred vision, denies pain Ears, nose, mouth and throat: Denies headache, Denies sore throat Cardiovascular: Denies chest pain, Denies shortness of breath Respiratory: Denies cough Gastrointestinal: Reports abdominal pain (Contractions) Genitourinary: Reports pelvic pain, Reports Musculoskeletal: Reports low back pain Integumentary: Denies pruritus, Denies rash Neurological: Denies numbness, Denies weakness Psychiatric: Denies anxiety, Denies depression Past Medical History Additional Past Medical History / Comment(s): Patient is a history of migraine headaches, ovarian cyst History of Any Multi-Drug Resistant Organisms: None Reported Past Surgical History: Tonsillectomy Additional Past Surgical History / Comment(s): 1999 Past Anesthesia/Blood Transfusion Reactions: No Reported Reaction Past Psychological History: No Psychological Hx Reported Smoking Status: Never smoker Past Alcohol Use History: None Reported, Occasional Past Drug Use History: None Reported Medications and Allergies Home Medications Medication Instructions Recorded Confirmed Type Pnv No.95/Ferrous Fum/Folic AC 1 tab PO DAILY 07/13/18 12/02/22 History [ Multivitamin Tablet] Aspirin 81 mg PO DAILY 12/02/22 12/02/22 History Allergies Allergy/AdvReac Type Severity Reaction Status Date / Time No Known Allergies Allergy Verified 12/02/22 00:14 Exam Osteopathic Statement: *. No significant issues noted on an osteopathic structural exam other than those noted in the History and Physical/Consult. Vital Signs Temp Pulse Resp BP Pulse Ox 12/02/22 00:45 98.8 F 91 16 128/77 93 L 12/02/22 00:13 98.8 F 91 16 128/77 93 L Intake and Output 12/01/22 12/01/22 12/02/22 14:59 22:59 06:59 Other: Weight 77.111 kg HEENT: Within normal limits Heart: Regular rate and rhythm Lungs: Clear to auscultation bilaterally Abdomen: Cervix: On admission is 4 cm/70%/-2 station with positive amnisure. Currently on my exam she is 9-1/2 cm with a bulging bag. Artificial rupture membranes of the fore bag is carried out and clear fluid is noted. heart tones: Category 1 Contractions: Every 2-3 minutes Extremities: Negative Homans Results Result Diagrams: 12/02/22 01:26 Abnormal Lab Results - Last 24 Hours (Table) 12/02/22 Range/Units 01:26 WBC 12.1 H (3.8-10.6) k/uL Hgb 11.1 L (11.4-16.0) gm/dL Hct 33.5 L (34.0-46.0) % Neutrophils # 8.9 H (1.3-7.7) k/uL Assessment and Plan (1) 38 weeks gestation of Current Visit: Yes Status: Acute Code(s): Z3A.38 - 38 WEEKS GESTATION OF SNOMED Code(s): 07612543 Plan: Admission for active labor. Epidural anesthesia. Expectant management.
[2022-12-02] MEDS ORDERED: ZOLPIDEM 5 MG TAB PO PRN (08:17)
[2022-12-02] MEDS ORDERED: SIMETHICONE 80 MG CHEWABLE PO PRN (08:17)
[2022-12-02] MEDS ORDERED: diphenhydrAMINE 25 MG CAP PO PRN (08:17)
[2022-12-02] MEDS ORDERED: diphenhydrAMINE 50 MG CAP PO PRN (08:17)
[2022-12-02] MEDS ORDERED: BENZOCAINE/MENTHOL SPRAY 1 GM/SPRAY AEROSOL TOPICAL PRN (08:17)
[2022-12-02] MEDS ORDERED: ACETAMINOPHEN TAB 325 MG TAB PO PRN (08:17)
[2022-12-02] MEDS ORDERED: diphenhydrAMINE 50 MG/ML 1 ML VIAL IVP PRN ×2 (08:17)
[2022-12-02] MEDS ORDERED: OXYTOCIN 30 UNITS/500 ML NS 30 UNIT in SALINE 1 500ML.BAG IV SCH (08:17)
[2022-12-02] MEDS ORDERED: HYDROCORTISONE 2.5% RECTAL CREAM 30 GM TUBE RECTAL PRN (08:17)
[2022-12-02] MEDS ORDERED: LANOLIN CREAM 5 GM TUBE TOPICAL PRN (08:17)
--- NOTE | 2022-12-02 08:18 | P.PROBDLV ---
Vaginal Delivery Note - . Vaginal Delivery Note: Normal spontaneous vaginal delivery viable female infant Apgars 8 and 9 delivery time is 0753 hours. Please see dictated H&P for intimate details of this patient's admission. In brief summary this is a pleasant 32-year-old 2 para 1 female estimated gestational age 38 weeks who presented last evening with complaints of gush of fluid. Patient does progress and gets an epidural for pain control. Patient gets to complete and she has no urge at all to push and was not feeling contractions, therefore at this time the epidural was discontinued. Patient shortly thereafter begins to feel contractions and urge to push. Patient pushes for approximately 30 minutes pushed the head to the perineum. Posterior perineum is quite restricted therefore infiltrated 1% lidocaine and a midline episiotomy is made. With this patient this done, she pushes one time and easily delivers the infant's head straight occiput anterior presentation over the perineum. Mouth and nares are bulb suctioned. There is no evidence of a nuchal cord. Gentle downward traction we then have deliver the anterior and posterior shoulder and rest this infant's body. Is a vigorous viable female infant Apgars are 8 and 9 delivery time was 0753 hours. After delivery of the infant the umbilical cord is clamped immediately due to history of jaundice with her first child. is in laid on the mother's abdomen. The placenta is then spontaneously delivered intact. Estimated blood loss is 100 mL. Is a first- degree posterior laceration is repaired with 3-0 Vicryl usual fashion excellent reapproximation is noted. All counts are correct 3. No complications. Infant and mother stable delivery room.
[2022-12-02] MEDS: IBUPROFEN 600 MG TAB PO PRN ×2 (08:46→16:46)
[2022-12-02] MEDS ORDERED: PRENATAL VIT-IRON-FOLIC ACID 1 EACH TABLET PO SCH (09:00)
[2022-12-02] MEDS: SENNOSIDES-DOCUSATE SODIUM 1 EACH TAB PO SCH ×2 (11:08→20:22)
[2022-12-03] MEDS: IBUPROFEN 600 MG TAB PO PRN (00:28)
[2022-12-03 01:09] VITALS: PULSE 80
[2022-12-03 07:09] LABS: Basophils % (A) 0 %; Eosinophils # (A) 0.2 k/uL (0-0.7); Eosinophils % (A) 2 %; HCT 31.5 % (34.0-46.0); HGB 10.3 gm/dL (11.4-16.0); Hypochromasia Slight; Lymphocytes # (A) 1.7 k/uL (1.0-4.8); Lymphocytes % (A) 17 %; MCH 27.4 pg (25.0-35.0); MCHC 32.8 g/dL (31.0-37.0); MCV 83.6 fL (80.0-100.0); Mean Platelet Volume 7.8; Monocytes # (A) 0.5 k/uL (0-1.0); Monocytes % (A) 5 %; Neutrophils # (A) 7.6 k/uL (1.3-7.7); Neutrophils % (A) 75 %; Platelet Count 320 k/uL (150-450); RBC 3.76 m/uL (3.80-5.40); RDW 14.2 % (11.5-15.5)
--- NOTE | 2022-12-03 07:14 | P.PNOBGVD ---
Subjective - Subjective Patient reports: Reports appetite normal, Reports voiding normally, Reports pain well controlled, Reports ambulating normally : doing well Objective - Latest Vital Signs Latest vital signs: Vital Signs Temp Pulse Resp BP Pulse Ox 12/03/22 00:00 98.2 F 80 18 126/77 12/02/22 16:00 98.6 F 88 18 132/77 97 12/02/22 12:00 98.0 F 108 H 16 131/73 12/02/22 10:20 97.4 F L 86 16 108/66 12/02/22 09:50 80 16 105/68 12/02/22 09:20 106 H 16 124/74 12/02/22 09:05 97.4 F L 85 16 117/68 12/02/22 08:50 97.8 F 97 16 120/67 12/02/22 08:35 102 H 16 110/59 12/02/22 08:20 97.4 F L 112 H 18 106/55 Intake and Output 12/02/22 12/03/22 12/03/22 22:59 06:59 14:59 Other: # Voids 2 1 - Exam Lungs: bilateral: normal Chest: Normal S1, Normal S2 Extremities: Present: normal Abdomen: Present: normal appearance, soft Uterus: Present: normal, firm - Labs Labs: Abnormal Lab Results - Last 24 Hours (Table) 12/03/22 Range/Units 06:33 RBC 3.76 L (3.80-5.40) m/uL Hgb 10.3 L (11.4-16.0) gm/dL Hct 31.5 L (34.0-46.0) % Assessment and Plan Assessment: day #1. Patient is resting without complaints and wishes to go home. Vital signs are stable she's afebrile. Uterus is firm nontender and she is having normal lochia. My impression is a normal course. Plan is to continue routine care discharge home later today. (1) Vaginal delivery Current Visit: Yes Status: Acute Code(s): O80 - ENCOUNTER FOR FULL-TERM UNCOMPLICATED DELIVERY SNOMED Code(s): 410817428
--- NOTE | 2022-12-03 07:19 | P.DS ---
Providers Date of admission: 12/02/22 00:33 Expected date of discharge: 12/03/22 Attending physician: Ramiro Perez Primary care physician: Stated None - Discharge Diagnosis(es) (1) Vaginal delivery Current Visit: Yes Status: Acute Hospital Course: Please see dictated H&P for intimate details of this patient's admission. In summary is a pleasant 32-year-old 2 para 1 female at it to labor and delivery spontaneous rupture membranes in active labor. Patient quickly goes on have a vaginal delivery viable female . Please see dictated delivery note. day #1 patient is doing well without complaints and wishes to go home. Patient's felt be stable for discharge home follow up with me in 6 weeks. Procedures: Normal spontaneous vaginal delivery Patient Condition at Discharge: Good Plan - Discharge Summary New Discharge Prescriptions: New Ibuprofen [Motrin] 600 mg PO Q6HR PRN #30 tab PRN Reason: Mild Pain (Scale 1 To 3) No Action Pnv No.95/Ferrous Fum/Folic AC [ Multivitamin Tablet] 1 tab PO DAILY Aspirin 81 mg PO DAILY Discharge Medication List Pnv No.95/Ferrous Fum/Folic AC [ Multivitamin Tablet] 1 tab PO DAILY 07/13/18 [History] Aspirin 81 mg PO DAILY 12/02/22 [History] Ibuprofen [Motrin] 600 mg PO Q6HR PRN #30 tab 12/03/22 [Rx] Follow up Appointment(s)/Referral(s): Ramiro Perez MD [STAFF PHYSICIAN] - 01/14/23 9:45 am (Please see me for a visit on 01/14/2023 @ 9:45 AM) Patient Instructions/Handouts: Vaginal Delivery (DC) Activity/Diet/Wound Care/Special Instructions: No intercourse or anything per vagina for 6 weeks. Please call if any fever, chills, excessive vaginal bleeding, and/or abdominal pain. Discharge Disposition: HOME SELF-CARE
[2022-12-03 09:38] VITALS: BP 111/76; RESP 16; TEMP 98
--- NOTE | 2022-12-03 17:51 | P.MSEPDOC ---
Presenting Problems - Arrival Data Date of Arrival on Unit: 12/02/22 Time of Arrival on Unit: 00:07 Mode of Transport: Wheelchair - Complaint OB-Reason for Admission/Chief Complaint: Possible Onset of Labor, Rule Out SROM Medical History - Information : 2 Para: 1 Term: 1 : 0 Abortions: Spontaneous or Elective: 0 Number of Living Children: 1 - Gestational Age Gestational Age by LUCA (wks/days): 38 Weeks and 0 Days Review of Systems - Review of Systems Constitutional: No problems Breast: No problems ENT: No problems Cardiovascular: No problems Respiratory: No problems Gastrointestinal: No problems Genitourinary: No problems Musculoskeletal: No problems Neurological: No problems Skin: No problems Vital Signs - Temperature Temperature: 98.0 F Temperature Source: Oral - Pulse Right Brachial Pulse Rate: 80 Pulse Assessment Method: Automatic Cuff - Respirations Respiratory Rate: 16 O2 Sat by Pulse Oximetry: 98 - Blood Pressure Right Arm Blood Pressure: 111/76 Blood Pressure Mean: 87 Blood Pressure Source: Automatic Cuff Medical Screen Scoring - Cervical Exam Dilation (cm): 4 Effacement (%): 60 Station: -2 Membranes: Intact - Uterine Contractions Frequency From (mins): 3 Frequency To (mins): 4 Duration From (seconds): 50 Duration To (seconds): 60 Intensity: Mild Resting: Soft to palpation - Assessment - Baby A Baseline FHR: 130 Heart Rate - NICHD Category: Category I (Normal) NST: Reactive Physician Notification - Physician Notified Physician Notified Date: 12/02/22 Physician Notified Time: 00:48 Physician: Dai Guerrero Order Received: Yes - Notification Comment Comment: Dr. Guerrero called with report on patient that presents to triage for SROM at 2245, positive amnisure, reactive nst, cervical exam 4/60/-2, GBS negative, no complications this . Maternal Triage Index - Maternal Triage Index Presenting for scheduled procedure w/no complaint: No - Stat/Priority 1 Stat Priority 1: No - Urgent/Priority 2 Urgent Priority 2: No - Prompt/Priority 3 Prompt Priority 3: No - Non-Urgent/Priority 4 Non-Urgent Priority 4: Yes Criteria Met for Priority 4: 38 0/7 SROM Disposition - Disposition OB Disposition: Admit Discharge Date: 12/02/22 Discharge Time: 11:00 I agree with the RN Medical Screening Exam: Yes Case reviewed; plan agreed upon as documented in EMR&OBIX.: Yes Diagnosis: ENCOUNTER FOR FULL-TERM UNCOMPLICATED DELIVERY
== END 2022-12-03 11:00 | disposition home or self-care (01) | DRG 806 ==
LOC: FBPOP 00:07 → 4FBP 00:33
PROVIDERS: ADMIT Obstetrics & Gynecology; ATTEND Obstetrics & Gynecology
PROC: 10E0XZZ Delivery of Products of Conception, External Approach (ICD-10-PCS; principal; 2022-12-03)
PROC: 0HQ9XZZ Repair Perineum Skin, External Approach (ICD-10-PCS; 2022-12-03)
PROC: 10907ZC Drainage of Amniotic Fluid, Therapeutic from Products of Conception, Via Natural or Artificial Opening (ICD-10-PCS; 2022-12-03)
DX: O42.92 Full-term premature rupture of membranes, unspecified as to length of time between rupture and onset of labor (principal); O99.354 Diseases of the nervous system complicating childbirth; Z37.0 Single live birth; G43.909 Migraine, unspecified, not intractable, without status migrainosus; O70.0 First degree perineal laceration during delivery; Z3A.38 38 weeks gestation of pregnancy; Z79.82 Long term (current) use of aspirin
CPT/HCPCS: 59025; 84112; 85025; 86850; 86900; 86901; 99213